=== PATIENT | female | born 1985 | race Caucasian/White ===

== ENCOUNTER 2025-08-23 01:43 | Emergency (ER) | payer MEDICAID, SELFPAY ==
[2025-08-23 01:46] VITALS: BMI 34.0
--- NOTE | 2025-08-23 02:02 | XR_ITS ---
EXAMINATION: PA chest single view TECHNIQUE: Upright PA chest single view Date and time: August 23, 2025, 0209 hours INDICATIONS: Coughing fever congestion beginning today. FINDINGS: Bibasilar pneumonia, significant left base Normal heart size The lungs are clear IMPRESSION: Bibasilar pneumonia, significant left base
[2025-08-23 02:04] VITALS: BP 116/78; PULSE 95; RESP 19; TEMP 36.8; O2SAT 97
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
[2025-08-23] MEDS: ALBUTEROL/IPRATROPIUM (Duoneb) RT SOL 3 ML NEBU INH (02:46)
[2025-08-23 02:48] VITALS: PULSE 93; RESP 18; O2SAT 99
[2025-08-23 03:23] LABS: Lactate (Lactic Acid) 1.4 mMol/L (0.4-2.0)
[2025-08-23 03:34] LABS: Basophils # (Auto) 0.0 Thou/mm3 (0.0-0.2); Basophils % (Auto) 0 % (0-2.5); Eosinophils # (Auto) 0.0 Thou/mm3 (0.0-0.5); Eosinophils % (Auto) 0 % (0-10); Hematocrit 33.2 % (36.0-46.0); Hemoglobin 11.1 g/dL (12.0-16.0); Immature Granulocytes Auto 0.03 Thou/mm3 (0.00-0.00); Lymphocytes # (Auto) 0.9 Thou/mm3 (1.0-4.8); Lymphocytes % (Auto) 16 % (10-50); Mean Corpuscular HGB Conc 33.4 g/dl (31.0-37.0); Mean Corpuscular Hemoglobin 33.2 pg (25.0-35.0); Mean Corpuscular Volume 99 fL (80-100); Monocytes # (Auto) 0.5 Thou/mm3 (0.0-0.8); Monocytes % (Auto) 8 % (0-12); Neutrophils # (Auto) 4.6 Thou/mm3 (1.8-7.7); Neutrophils % (Auto) 76 % (37-80); Nucleated Red Blood Cell # 0.00 Thou/mm3 (0.00-0.00); Nucleated Red Blood Cell % 0 /100 WBC (0); Platelet Count 163 Thou/mm3 (140-440); RDW Standard Deviation 46.0 fL (36.4-46.3); Red Blood Count 3.34 Miln/mm3 (4.00-5.20); White Blood Count 6.0 Thou/mm3 (3.6-11.0)
[2025-08-23 03:56] LABS: Alanine Aminotransferase < 7 U/L (10-49); Albumin, Serum 4.1 gm/dL (3.5-5.0); Albumin/Globulin Ratio 1.5 (1.2-2.2); Alkaline Phosphatase 89 U/L (46-116); Anion Gap 10 (7-16); Aspartate Amino Transferase 10 U/L (0-34); B-Type Natriuretic Peptide < 20 pg/mL (0-100); BUN/Creatinine Ratio 19 Ratio (12-20); Bilirubin,Total 0.5 mg/dL (0.3-1.2); Blood Urea Nitrogen 13 mg/dL (9-23); Calcium 8.9 mg/dL (8.3-10.6); Calcium (Corrected) 8.9 mg/dL (8.5-10.1); Carbon Dioxide 21.6 mMol/L (20.0-31.0); Chloride 108 mMol/L (98-107); Creatinine (Component) 0.7 mg/dL (0.6-1.3); Estimated Creatinine Clearance 140.1 mL/min (>60); Globulin 2.7 gm/dL (2.3-3.5); Glucose 92 mg/dL (74-106); Osmolality,Calculated 279 (275-295); Potassium 3.2 mMol/L (3.4-5.1); Procalcitonin 0.34 ng/ml (0.0-0.49); Sodium 140 mMol/L (136-145); Total Protein 6.8 gm/dL (5.7-8.2); Troponin I < 0.002 ng/mL (0.0-0.045); eGFR > 60 See Note
[2025-08-23 04:00] LABS: Influenza A Ag Negative; Influenza B Ag Negative
[2025-08-23 04:10] VITALS: BP 114/73; PULSE 98; RESP 16; TEMP 36.9; O2SAT 99
[2025-08-25 19:52] LABS: CD19 Percentage 10 % (6-29); CD19, Absolute 111 cells/uL (110-660); CD3 Percentage 77 % (57-85); CD3, Absolute 851 cells/uL (840-3060); CD3-CD16+CD56+ % 13 % (4-25); CD3-CD16+CD56+ (Abs) 141 cells/uL (70-760); CD4 Percentage 24 % (30-61); CD4, Absolute 262 cells/uL (490-1740); CD4/CD8 Ratio 0.44 (0.86-5.00); CD8 Percentage 54 % (12-42); CD8, Absolute 597 cells/uL (180-1170)
[2025-08-26 15:33] LABS: HIV-1 RNA, QN PCR 946 copies/mL
[2025-08-28 06:34] LABS: Lymphocytes, Absolute 1108 cells/uL (850-3900)
[2025-08-28 06:37] LABS: HIV-1 RNA, QN PCR Log 2.98
== END 2025-08-23 04:13 | disposition home or self-care (01) ==
LOC: SERX 06:07
PROVIDERS: Physician Assistant; Emergency Provider Emergency Medicine; PCP Nurse Practitioner Family
DX: J18.9 Pneumonia, unspecified organism (principal)
CPT/HCPCS: 36415; 71045; 80053; 83605; 83880; 84145; 84484; 85025; 86355; 86357; 86359; 86360; 87040; 87502; 87536; 87635; 93005; 94640; 99283; A9270